=== PATIENT | female | born 1950 | race African-American/Black ===

== ENCOUNTER 2021-06-19 14:08 | Emergency (ER) | payer OTHER ==
[~2021-06-19] VITALS: Ht 167.6 cm; Wt 69.8 kg
[2021-06-19 15:56] LABS: ABSOLUTE NEUTROPHILS 3.4 thou/uL (1.4-8.2); BASOPHILS 0.6 % (0.0-2.0); EOSINOPHILS 1.6 % (0.0-3.0); HEMATOCRIT 33.5 % (37.0-47.0); LYMPHOCYTES 24.2 % (24.0-44.0); MCH 28.6 pg (26.0-34.0); MCHC 32.9 g/dL (28.0-37.0); MONOCYTES 9.4 % (1.0-8.0); PLATELET COUNT 245 thou/uL (150-400); POLYS 64.2 % (36.0-66.0); RBC 3.85 mil/uL (4.20-5.00); RDW 14.1 % (10.5-14.5); WBC 5.2 thou/uL (4.0-11.0)
[2021-06-19 16:11] LABS: CALCIUM 9.2 mg/dL (8.5-10.1); CREATININE 0.8 mg/dL (0.6-1.0); POTASSIUM 4.8 mmol/L (3.5-5.1)
[2021-06-19 17:02] VITALS: BP 170/80
--- NOTE | 2021-06-20 07:09 | EKG ---
[place] [address] [employer] [facility] [place] [address] ELECTROCARDIOGRAM REPORT Name: CARLIE ROTHMAN Room #: [facility] [id number] Admission: 06/19/21 Attend Phys: Discharge: 06/19/21 Date of : 46 Report #: [id number] [facility] ED Test Date: 2021-06-19 Test Time: 14:45:44 Pat Name: CARLIE ROTHMAN Department: Room: Gender: F [place]: : 1950 Requested By: Sander Bonilla Order Number: [id number] MD: Reymundo Patterson Measurements Intervals [place] Rate: 50 P: 25 NM: 187 QRS: 4 QRSD: 98 T: 45 QT: 459 QTc: 419 Interpretive Statements Sinus rhythm Borderline T abnormalities, anterior leads No previous ECG available for comparison Electronically Signed On 06-20-2021 7:09:08 CDT by Reymundo Patterson [email or web address] <ELECTRONICALLY SIGNED> By: Reymundo Patterson MD, [facility] 06/20/21 0709 1445 1445 Reymundo Patterson MD, FACC /EPI
== END 2021-06-19 17:04 | disposition home or self-care (01) ==
LOC: ER 14:08
PROVIDERS: Student in an Organized Health Care Education/Training Program
DX: I10 Essential (primary) hypertension (principal); K21.9 Gastro-esophageal reflux disease without esophagitis; E78.00 Pure hypercholesterolemia, unspecified; Z91.018 Allergy to other foods; Z87.891 Personal history of nicotine dependence